=== PATIENT | male | born 1990 | race Native Hawaiian/Other Pacific Islander ===

== ENCOUNTER 2017-09-07 15:22 | Emergency (ER) | payer OTHER ==
[~2017-09-07] VITALS: Ht 182.9 cm; Wt 92.0 kg
[2017-09-07 15:25] VITALS: BP 138/83; PULSE 63; RESP 16; TEMP 97.8; O2SAT 98
[2017-09-07] MEDS ORDERED: LIDOCAINE HCL 1% 50 ML VIAL INFIL ONE (16:00)
[2017-09-07] MEDS ORDERED: TETANUS/DIPHTHERIA TOXOID ADULT 0.5 ML VIAL IM ONE (16:00)
[2017-09-07] MEDS ORDERED: CYCLOBENZAPRINE HCL 10 MG TAB PO ONE (16:00)
[2017-09-07] MEDS ORDERED: KETOROLAC TROMETHAMINE 60 MG/2 ML (IM) VIAL IM ONE (16:00)
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
[2017-09-07] MEDS ORDERED: KETOROLAC TROMETHAMINE 30 MG/ML (IVP) VIAL IV PUSH ONE (17:00)
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
[2017-09-07 18:15] VITALS: BP 122/77; PULSE 66; RESP 16; O2SAT 100
[2017-09-07] MEDS ORDERED: ROBA750T PO (18:53)
[2017-09-07] MEDS ORDERED: IBUP1TAB7 PO (18:53)
== END 2017-09-07 19:09 | disposition home or self-care (01) ==
LOC: NEPD 15:22
DX: S01.412A Laceration without foreign body of left cheek and temporomandibular area, initial encounter (principal); S39.012A Strain of muscle, fascia and tendon of lower back, initial encounter; S29.012A Strain of muscle and tendon of back wall of thorax, initial encounter; Z23 Encounter for immunization; V43.52XA Car driver injured in collision with other type car in traffic accident, initial encounter
CPT/HCPCS: 12011; 70450; 72072; 72100; 90471; 90714; 96374; 99285; J1885

== ENCOUNTER 2017-09-18 11:51 | Emergency (ER) | payer OTHER ==
[~2017-09-18] VITALS: Ht 182.9 cm; Wt 100.0 kg
[~2017-09-18 11:51] MED LIST: IBUP1TAB7 PO; ROBA750T PO
[2017-09-18 11:53] VITALS: BP 127/75; PULSE 65; RESP 18; TEMP 97.8; O2SAT 99
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
[2017-09-18] MEDS ORDERED: IBUP1TAB7 PO (13:44)
== END 2017-09-18 14:23 | disposition home or self-care (01) ==
LOC: NEPD 11:51
DX: S39.012D Strain of muscle, fascia and tendon of lower back, subsequent encounter (principal); M41.9 Scoliosis, unspecified; V49.9XXD Car occupant (driver) (passenger) injured in unspecified traffic accident, subsequent encounter
CPT/HCPCS: 72128; 99284